=== PATIENT | female | born 1960 | race Caucasian/White ===

== ENCOUNTER 2018-11-02 07:19 | Day surgery (SDC) | payer BC ==
[~2018-11-02] VITALS: Ht 165.1 cm; Wt 62.6 kg
[~2018-11-02 07:19] MED LIST: ENAL5TAB PO; NS 1,000 ML IV ONE; OMEP20CA4 PO; PRAV40TA2 PO
[2018-11-02] MEDS ORDERED: PROPOFOL 200 MG/20 ML VIAL As Ordered ONE ×2 (08:25→08:41)
--- NOTE | 2018-11-02 08:46 | ROOR ---
Patient Name: Sabi Manzo Procedure Date: 11/02/2018 8:24 AM Date of : 1960 Age: 58 Room: [facility] Gender: Female Note Status: Finalized Procedure: Colonoscopy Indications: Follow-up of diverticulitis Providers: Blue HANSON MD Referring MD: Caprice JONES MD Requesting Provider: Medicines: Monitored Anesthesia Care Complications: No immediate complications. Procedure: Pre-Anesthesia Assessment: - The heart rate, respiratory rate, oxygen saturations, blood pressure, adequacy of pulmonary ventilation, and response to care were monitored throughout the procedure. The Colonoscope was introduced through the anus and advanced to the terminal ileum, with identification of the appendiceal orifice and IC valve. The colonoscopy was performed without difficulty. The patient tolerated the procedure well. The quality of the bowel preparation was good. Findings: The perianal and digital rectal examinations were normal. Multiple small-mouthed diverticula were found in the sigmoid colon. Internal hemorrhoids were found during retroflexion. The hemorrhoids were medium-sized. The exam was otherwise without abnormality on direct and retroflexion views. Impression: - Mild diverticulosis in the sigmoid colon. - Moderate Internal hemorrhoids. - The colon examination was otherwise normal on direct and retroflexion views. - No specimens collected. Recommendation: - Use fiber, for example Citrucel, Fibercon, Konsyl or Metamucil. - Continue present medications. Blue Hanson MD Blue HANSON MD 11/02/2018 8:45:59 AM Electronically signed by Blue HANSON MD Number of Addenda: 0 Note Initiated On: 11/02/2018 8:24 AM Estimated Blood Loss: Estimated blood loss: none.
[2018-11-02 09:05] VITALS: BP 127/90
== END 2018-11-02 09:05 | disposition home or self-care (01) ==
LOC: M OPP 07:19
PROVIDERS: ATTEND Internal Medicine Gastroenterology
DX: K64.8 Other hemorrhoids (principal); K57.30 Diverticulosis of large intestine without perforation or abscess without bleeding; Z09 Encounter for follow-up examination after completed treatment for conditions other than malignant neoplasm; K57.32 Diverticulitis of large intestine without perforation or abscess without bleeding; K59.00 Constipation, unspecified